=== PATIENT | male | born 1990 | race Caucasian/White ===

== ENCOUNTER 2018-09-09 08:03 | Emergency (ER) | payer OTHER ==
[~2018-09-09] VITALS: Ht 182.9 cm; Wt 78.5 kg
[2018-09-09 08:21] VITALS: BP 130/78
[2018-09-09] MEDS ORDERED: DIAZEPAM 5 MG/ML 2 ML DISP.SYRIN IM ONE (08:30)
[2018-09-09] MEDS ORDERED: LORAZEPAM INJ 2 MG/ML VIAL ONE (08:31)
[2018-09-09] MEDS: LORAZEPAM INJ 2 MG/ML VIAL IM ONE (08:38)
== END 2018-09-09 08:41 | disposition home or self-care (01) ==
LOC: ER 08:08
DX: M62.830 Muscle spasm of back (principal); M54.5 Low back pain
CPT/HCPCS: A4606; J2060; Z7610

== ENCOUNTER 2018-11-05 11:40 | Emergency (ER) | payer OTHER ==
[~2018-11-05] VITALS: Ht 182.9 cm; Wt 77.6 kg
[2018-11-05 11:40] VITALS: BP 129/75
[2018-11-05] MEDS ORDERED: FAMOTIDINE/PF INJ 20 MG/2 ML VIAL IV ONE ×2 (12:29→12:30)
[2018-11-05] MEDS ORDERED: methylPREDNISolone SOD SUCC 125 MG/2ML VIAL ONE (12:29)
[2018-11-05] MEDS ORDERED: diphenhydrAMINE HCL 50 MG/ML VIAL ONE (12:29)
[2018-11-05] MEDS ORDERED: methylPREDNISolone SOD SUCC 125 MG/2ML VIAL IV ONE (12:30)
[2018-11-05] MEDS ORDERED: IV NS 0.9% 1,000 ML BAG IV ONE (12:30)
[2018-11-05] MEDS ORDERED: diphenhydrAMINE HCL 50 MG/ML VIAL IV ONE (12:30)
== END 2018-11-05 13:24 | disposition home or self-care (01) ==
LOC: ER 11:44
DX: J02.9 Acute pharyngitis, unspecified (principal); T42.6X5A Adverse effect of other antiepileptic and sedative-hypnotic drugs, initial encounter; F41.9 Anxiety disorder, unspecified; F39 Unspecified mood [affective] disorder; Y92.89 Other specified places as the place of occurrence of the external cause
CPT/HCPCS: J1200; J2930; J3490; J7030